=== PATIENT | male | born 1960 | race Caucasian/White ===

== ENCOUNTER 2019-12-21 14:38 | Emergency (ER) | payer OTHER ==
[~2019-12-21] VITALS: Ht 172.7 cm; Wt 70.3 kg
[2019-12-21 15:19] VITALS: Ht 172.7 cm; Wt 70.3 kg
[2019-12-21 18:51] VITALS: BP 150/93
== END 2019-12-21 18:51 | disposition home or self-care (01) ==
LOC: ED 14:38
DX: S61.012A Laceration without foreign body of left thumb without damage to nail, initial encounter (principal); X58.XXXA Exposure to other specified factors, initial encounter; Y93.89 Activity, other specified; Y92.89 Other specified places as the place of occurrence of the external cause; Y99.8 Other external cause status
CPT/HCPCS: 90715; J0690; J2001; Q0092